=== PATIENT | male | born 1965 | race Caucasian/White ===

== ENCOUNTER 2019-08-13 23:53 | Inpatient (IN) | payer OTHER ==
[~2019-08-13] VITALS: Ht 175.3 cm; Wt 105.2 kg
--- NOTE | ~2019-08-13 | CON ---
[address] [address] CONSULTATION Name: DILLON GUILLEN Room: [address] IN M.R.#: [id number] Admission: 08/14/19 Attend Phys: Selvin Vanegas, Discharge: Date of : 67 Report #: [id number] THIS REPORT FOR: //name// CC: JOSE L physician/PCP Selvin Vanegas DICTATED BY: Alie HOLT DATE OF SERVICE: 08/14/2019 The patient does not currently have a PCP. Please note at the time of this dictation, the patient was seen and physically examined by myself. REASON FOR CONSULTATION: Hematemesis. HISTORY OF PRESENT ILLNESS: This is a 54-year-old male, who presented to the Emergency Room after just not feeling well all day yesterday where he had just some nausea, which precipitated and got worse later that evening. He states he noticed he was feeling very tired and he did have some just generalized body aches as well. He states that he went to bed last night and then later woke up not feeling well, went to the bathroom, and noticed that he had vomited and it was very dark red large clots and then next thing he knew he woke up and the paramedics were there. He apparently had a syncopal episode after vomiting. He states that was his first episode of doing so. He had a bowel movement earlier that evening. He states that it was completely normal, did not notice any black tarry stools with that. He states his bowels typically move on a daily basis, soft and formed. The patient also states that he has never had a screening colonoscopy. He does have some issues that he takes [place] usually prior to bedtime for indigestion, especially when he eats spicy foods. The patient does mention that he does take 400 mg of ibuprofen 3 times a day for his knee pain, which has been ongoing for some time. He recently started some CBD oil to see if he could get off of the ibuprofen and he was thinking about doing so, but had not weaned off yet. ALLERGIES: No known drug allergies. MEDICATIONS: From home, none. PAST MEDICAL HISTORY: Negative. PAST SURGICAL HISTORY: Negative. FAMILY HISTORY: Negative for any GI [place] [address] CONSULTATION Name: DILLON GUILLEN Room: [address] IN .R.#: [id number] Admission: 08/14/19 Attend Phys: Selvin Vanegas, Discharge: Date of : 67 Report #: [id number] SOCIAL HISTORY: He is . He does have a drink on the weekends. Tobacco use, he chews about a can and a half daily or every 2 days. Denies any illegal drug use except for doing the CBD oil at this time. REVIEW OF SYSTEMS: Twelve point review of systems essentially negative except for what is mentioned in the HPI. PHYSICAL EXAMINATION: VITAL SIGNS: Temperature 36.7, pulse 71, respirations 15 and blood pressure 124/80. HEART: Regular rate and rhythm. LUNGS: Clear. ABDOMEN: Soft. Positive bowel sounds in all 4 quadrants with no masses or tenderness noted. LABORATORY DATA: Hemoglobin on admission was 5.4, he got 2 units of blood, he is up to 9; white count is 8.6; and platelets 214. GFR is 58. PT is 11.6 and INR is 1.1. DIAGNOSTIC DATA: CT of the head was negative and chest negative. IMPRESSION: 1. Hematemesis. 2. Chronic nonsteroidal antiinflammatory drugs use. 3. Acute anemia. 4. History of tobacco use, chewing. 5. Hypokalemia. 6. Hypomagnesemia. PLAN: 1. EGD today with Dr. Bro. 2. Protonix drip, continue. 3. Further recommendations to be made after the procedure has been performed. 4. The patient will need a screening colonoscopy as an outpatient; however, he informs me he plans on doing Cologuard. Thank you for allowing us to participate in this patient's care. Please do not hesitate to call with any questions regarding this consult. By: [id number] Bro MD /barrett
[2019-08-13 23:57] VITALS: BP 117/54
[2019-08-14] VITALS (20 sets, daily range): BP systolic 104–140; BP diastolic 60–84
[2019-08-14] MEDS ORDERED: CBD OIL (00:01)
[2019-08-14] MEDS ORDERED: IBUPROFEN 400400 M2 PO (00:01)
[2019-08-14 00:57] LABS: ABSOLUTE EOSINOPHILS 0.2 thou/uL (0.0-0.7); ABSOLUTE LYMPHOCYTES 0.9 thou/uL (0.8-5.3); ABSOLUTE MONOCYTES 0.6 thou/uL (0.0-1.2); ABSOLUTE NEUTROPHILS 4.3 thou/uL (1.6-8.1); BASOPHILS 0.4 %; EOSINOPHILS 3.2 %; LYMPHOCYTES 14.9 %; MCH 23.3 pg (26.0-34.0); MCHC 32.6 g/dL (28.0-37.0); MCV 71.7 fL (80.0-100.0); MONOCYTES 10.3 %; MPV 7.8 fl. (7.2-11.1); NUCLEATED RBCS 0 /100WBC; PLATELET COUNT* 175 thou/uL (150-400); POLYS 71.2 %; RBC 2.31 mil/uL (4.50-6.00); RDW-CV 17.5 % (10.5-14.5); WBC 6.1 thou/uL (4.0-11.0)
[2019-08-14 01:26] LABS: INR 1.4
[2019-08-14 01:36] LABS: ALBUMIN 1.8 g/dL (3.4-5.0); ALKALINE PHOSPHATASE 31 U/L (46-116); ANION GAP 9 mmol/L (7-16); BUN 37 mg/dL (7-18); CHLORIDE 115 mmol/L (98-107); CO2 22 mmol/L (21-32); GLUCOSE 66 mg/dL (70-99); LIPASE 57 U/L (73-393); NT-PRO BRAIN NAT PEPTIDE 20 pg/mL (<300); SGOT 16 U/L (15-37); SGPT 20 U/L (30-65); SODIUM 146 mmol/L (136-145); TOTAL BILIRUBIN 0.1 mg/dL (<0.1-1.0); TOTAL PROTEIN 3.7 g/dL (6.4-8.2); TROPONIN-I LEVEL <0.06 ng/mL (<0.06)
[2019-08-14 01:39] LABS: CALCIUM 5.3 mg/dL (8.5-10.1); POTASSIUM 2.5 mmol/L (3.5-5.1)
[2019-08-14 01:40] LABS: HEMOGLOBIN 5.4 gm/dL (14.0-18.0)
[2019-08-14 01:41] LABS: HEMATOCRIT 16.6 % (42.0-52.0)
[2019-08-14 04:00] LABS: ANISOCYTOSIS 1+; HYPOCHROMASIA 2+; MICROCYTES 2+; PLATELET ESTIMATE ADEQUATE
--- NOTE | 2019-08-14 06:10 | NUR ---
RECIEVED REPORT AND ASSUMED CARE AT 0405. PT TRANSPORTED FROM ED TO ICU BED 2. VSS. MONITORING IN PLACE. PT DENIES COMPLAINTS OF PAIN. ASSESSMENT COMPLETED CHARTED. ADMISSION COMPLETED BY NURSING. BED LOCKED IN LOWEST POSITION, CALL LIGHT WITHIN REACH.
[2019-08-14 09:28] LABS: HEMATOCRIT 27.2 % (42.0-52.0); MCH 24.4 pg (26.0-34.0); MCHC 33.1 g/dL (28.0-37.0); MCV 73.9 fL (80.0-100.0); MPV 8.1 fl. (7.2-11.1); RBC 3.69 mil/uL (4.50-6.00); RDW-CV 18.4 % (10.5-14.5); WBC 8.6 thou/uL (4.0-11.0)
[2019-08-14 09:40] LABS: CREATININE 0.9 mg/dL (0.6-1.3); MAGNESIUM 2.3 mg/dL (1.8-2.4); POTASSIUM 4.1 mmol/L (3.5-5.1)
[2019-08-14 09:41] LABS: CALCIUM 7.5 mg/dL (8.5-10.1)
[2019-08-14 09:45] LABS: INR 1.1; PROTIME 11.6 Seconds (9.20-11.50)
--- NOTE | 2019-08-14 10:18 | EKG ---
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
--- NOTE | 2019-08-14 10:34 | NUR ---
ICU rounds and assessment: Pt lives at home with . Pt NPO. Pt GI scope pending. No known dc needs at this time.
[2019-08-14 13:53] LABS: AMP/METHAMP Negative (Negative); BARBITURATES Negative (Negative); BENZODIAZEPINES Negative (Negative); COCAINE Negative (Negative); METHADONE Negative (Negative); OPIATES Negative (Negative); PCP Negative (Negative); THC Negative (Negative)
--- NOTE | 2019-08-14 17:20 | NUR ---
PT A/O X4,VSS,TRACING SR ON THE MONITOR.PT ON ROOM AIR.NO C/O PAIN.NO N/V OR BLEEDING.PT HAD EGD THIS AM WITH NO ACTIVE BLEEDING FOUND.RIGHT IJ TRIPLE LUMEN PATENT WITH IVF INFUSING PER ORDERS.RIGHT AC AND RIGHT WRIST IV PATENT AND SALINE LOCKED.CIWA COMPLETED.UA SENT.PT DOWNGRADED TO TELE STATUS.PT INFORMED OF PLAN OF CARE AND COMMUNICATES UNDERSTANDING.HOURLY ROUNDING COMPLETED.FALL PRECAUTIONS IN PLACE.CALL LIGHT WITHIN REACH.WILL CONTINUE TO MONITOR FOR DURATION OF SHIFT.
[2019-08-14 17:26] LABS: HEMATOCRIT 26.2 % (42.0-52.0); HEMOGLOBIN 8.7 gm/dL (14.0-18.0); MCH 24.3 pg (26.0-34.0); MCHC 33.3 g/dL (28.0-37.0); MCV 72.9 fL (80.0-100.0); MPV 8.1 fl. (7.2-11.1); RBC 3.59 mil/uL (4.50-6.00); RDW-CV 18.3 % (10.5-14.5); WBC 7.2 thou/uL (4.0-11.0)
[2019-08-15] VITALS (7 sets, daily range): BP systolic 110–148; BP diastolic 64–74
[2019-08-15 04:57] LABS: HEMATOCRIT 24.2 % (42.0-52.0); HEMOGLOBIN 7.9 gm/dL (14.0-18.0); MCHC 32.5 g/dL (28.0-37.0); MCV 73.9 fL (80.0-100.0); MPV 8.2 fl. (7.2-11.1); RBC 3.28 mil/uL (4.50-6.00); RDW-CV 18.2 % (10.5-14.5); WBC 6.8 thou/uL (4.0-11.0)
[2019-08-15 05:12] LABS: ALBUMIN 2.4 g/dL (3.4-5.0); CALCIUM 7.3 mg/dL (8.5-10.1); CREATININE 0.8 mg/dL (0.6-1.3); TOTAL BILIRUBIN 0.2 mg/dL (<0.1-1.0)
--- NOTE | 2019-08-15 05:29 | NUR ---
RECEIVED REPORT AND ASSUMED CARE AT 1900. VSS. CARDIAC MONITORING IN PLACE. PT DENIES ANY COMPLAINTS OF PAIN. NO COMPLAINTS OF N/V. ASSESSMENT COMPLETED CHARTED. PT UP AD [place] IN ROOM, ON RA. CIWA COMPLETED=0 X2. CIWA <8X THREE 8HR CHECK. ASSESSMENT D/C PER PROTOCOL. BED LOCKED IN LOWEST POSITION, CALL LIGHT WIHTHIN REACH. ROUNDING COMPLETED AND ALL NEEDS MET.
--- NOTE | 2019-08-15 10:41 | NUR ---
ICU rounds: Pt on room air, up ad larissa, heart healthy diet. Pt tele status and possibility of dc home with on Monday.
--- NOTE | 2019-08-15 16:51 | NUR ---
PT IS A/OX4,VSS,TRACING SR ON THE MONITOR.RIGHT IJ TRIPLE LUMEN PATENT AND SALINE LOCKED.RIGHT AC IV PATENT AND SALINE LOCKED.NO C/O PAIN.NO C/O N/V.NO SIGNS OF BLEEDING.PT DID HAVE A BLACK FORMED BOWEL MOVEMENT THIS SHIFT.PT IS CALM AND COOPERATIVE.PT INFORMED OF PLAN OF CARE AND COMMUNICATES UNDERSTANDING.WILL CONTINUE TO MONITOR FOR DURATION OF SHIFT.
[2019-08-16 00:46] VITALS: BP 131/67
[2019-08-16 04:25] VITALS: BP 142/74
[2019-08-16 04:36] LABS: HEMATOCRIT 24.3 % (42.0-52.0); HEMOGLOBIN 7.9 gm/dL (14.0-18.0); MCHC 32.4 g/dL (28.0-37.0); MPV 7.9 fl. (7.2-11.1); RBC 3.29 mil/uL (4.50-6.00); RDW-CV 18.5 % (10.5-14.5); WBC 7.4 thou/uL (4.0-11.0)
--- NOTE | 2019-08-16 04:47 | NUR ---
VITALS STABLE, AFEBRILE. DENIES PAIN/NAUSEA, NO BM/EMESIS. SLEPT THROUGH THE NIGHT. CALL LIGHT WITHIN REACH.
[2019-08-16 04:55] LABS: CALCIUM 7.7 mg/dL (8.5-10.1); CREATININE 0.9 mg/dL (0.6-1.3); PHOSPHORUS* 3.2 mg/dL (2.5-4.9)
[2019-08-16 07:25] VITALS: BP 138/75
[2019-08-16 08:38] VITALS: BP 138/75
[2019-08-16] MEDS ORDERED: PROTONIX40 M1 PO (09:10)
--- NOTE | 2019-08-16 09:52 | NUR ---
RECEIVED REPORT AND ASSUMED CARE OF PT.PT IS A/OX4,VSS,TRACING SR ON THE MONITOR.PT REMAINS ON ROOM AIR.RIGHT JUGULAR PATENT AND SALINE LOCKED.NO C/O PAIN.NO N/V.NO BLEEDING.LABS STABLE.PT OK FOR DISCHARGE.PAPERWORK COMPLETED AND GIVEN TO THE PT.SCRIPTS GIVEN WITH EDUCATION.IVS REMOVED.ALL PERSONAL BELONGINGS PACKED AND TAKEN WITH THE PT.PT WHEELED OUT BY NURSING STAFF TO PERSONAL VEHICLE.
--- NOTE | 2019-08-16 10:24 | NUR ---
NO DISCHARGE NEEDS IDENTIFIED.
== END 2019-08-16 09:55 | disposition home or self-care (01) | DRG 379 ==
LOC: M.ERS 23:53 → M.TBA-ER 08-14 02:11 → M.ICU 08-14 02:11
PROVIDERS: Emergency Medicine; Internal Medicine; ADMIT Family Medicine
PROC: 30233N1 Transfusion of Nonautologous Red Blood Cells into Peripheral Vein, Percutaneous Approach (ICD-10-PCS; principal; 2019-08-14)
PROC: 0DJ08ZZ Inspection of Upper Intestinal Tract, Via Natural or Artificial Opening Endoscopic (ICD-10-PCS; principal; 2019-08-14)
DX: K92.2 Gastrointestinal hemorrhage, unspecified (principal); T39.395A Adverse effect of other nonsteroidal anti-inflammatory drugs [NSAID], initial encounter; Y92.89 Other specified places as the place of occurrence of the external cause; E83.51 Hypocalcemia; E87.6 Hypokalemia; E83.42 Hypomagnesemia; F10.10 Alcohol abuse, uncomplicated; K21.9 Gastro-esophageal reflux disease without esophagitis; F17.220 Nicotine dependence, chewing tobacco, uncomplicated; K44.9 Diaphragmatic hernia without obstruction or gangrene; K20.9 Esophagitis, unspecified; D50.9 Iron deficiency anemia, unspecified; Z79.899 Other long term (current) drug therapy